=== PATIENT | male | born 1980 | race Caucasian/White ===

== ENCOUNTER 2016-08-09 05:14 | Emergency (ER) | payer OTHER ==
[~2016-08-09] VITALS: Ht 162.6 cm; Wt 88.0 kg
[~2016-08-09 05:14] MED LIST: AMOXICILLIN500 MG PO; DIFLUCAN150 MG OR; LIORESAL IT; LOTRIMIN AF11 EX; RANITIDINE75 M1 PO; TAM75CAP PO; ULTRAM50 M1 PO; [UNRECOGNIZED DRUG - OTHER] IT
[2016-08-09 06:49] LABS: HEMATOCRIT 46.7 % (39.0-50.0); HEMOGLOBIN 15.3 g/dl (14.0-18.0); IMMATURE GRANULOCYTES 0.2 % (0.0-1.0); MEAN CELL VOLUME 89.1 fL CALC (80.0-100.0); MEAN CORPUSCULAR HGB 29.2 pG CALC (26.0-32.0); MEAN CORPUSCULAR HGB CONC 32.8 g/L CALC (32.0-36.0); NEUT# 2.97 thou/uL (1.82-7.42); RED BLOOD COUNT 5.24 mill/uL (4.70-6.10); RED CELL DISTRI WIDTH 13.4 % (11.5-15.5)
[2016-08-09 07:24] LABS: ALBUMIN 4.6 g/dL (3.2-5.0); ALKALINE PHOSPHATASE 95 u/l (38-126); AMYLASE 91 u/l (30-110); ANION GAP 18 (6-22 (CALC)); BILIRUBIN, TOTAL 1.4 mg/dL (0.0-1.4); BUN 12 mg/dL (9-20); BUN/CREATININE RATIO 10 (12-20 (CALC)); CALCIUM 9.4 mg/dL (8.4-10.2); CARBON DIOXIDE 26 mmol/l (22-30); CHLORIDE 106 mmol/l (95-108); CREATININE 1.2 mg/dL (0.7-1.3); GFR > 60 ML/MIN (>=60 (CALC)); GFR FOR AFR.AMER. > 60 ML/MIN (>=60 (CALC)); GLUCOSE 112 mg/dL (75-110); LIPASE 111 u/l (23-300); POTASSIUM 4.2 mmol/l (3.5-5.1); SGOT/AST 38 u/l (17-59); SGPT/ALT 41 u/l (21-72); SODIUM 146 mmol/l (137-146); TOTAL PROTEIN 7.8 g/dL (6.3-8.2)
[2016-08-09] MEDS ORDERED: PANTOPRAZOLE SO40 M1 PO (07:58)
[2016-08-09] MEDS ORDERED: LORTAB 10-325 M1 TAB PO (08:32)
[2016-08-09 08:49] VITALS: BP 112/68
[2016-08-09] MEDS ORDERED: ZOFRAN ODT4 MG PO (11:48)
== END 2016-08-09 09:00 | disposition home or self-care (01) | DRG 392 ==
LOC: ED 05:14
PROVIDERS: Emergency Medicine
DX: R10.32 Left lower quadrant pain (principal); N20.0 Calculus of kidney; G80.9 Cerebral palsy, unspecified; K44.9 Diaphragmatic hernia without obstruction or gangrene; Z96.89 Presence of other specified functional implants

== ENCOUNTER 2017-06-12 08:25 | Emergency (ER) | payer OTHER ==
[~2017-06-12] VITALS: Ht 162.6 cm; Wt 87.0 kg
[~2017-06-12 08:25] MED LIST changes: +LORTAB 10-325 M1 TAB PO; +PANTOPRAZOLE SO40 M1 PO; +ZOFRAN ODT4 MG PO
[2017-06-12 09:21] LABS: HEMATOCRIT 47.2 % (39.0-50.0); HEMOGLOBIN 15.7 g/dl (14.0-18.0); IMMATURE GRANULOCYTES 0.3 % (0.0-1.0); MEAN CELL VOLUME 87.6 fL CALC (80.0-100.0); MEAN CORPUSCULAR HGB 29.1 pG CALC (26.0-32.0); MEAN CORPUSCULAR HGB CONC 33.3 g/L CALC (32.0-36.0); RED BLOOD COUNT 5.39 mill/uL (4.70-6.10); RED CELL DISTRI WIDTH 13.7 % (11.5-15.5); URINE BILIRUBIN - DIPSTICK NEGATIVE (NEGATIVE); URINE BLOOD DIPSTICK LARGE (NEGATIVE); URINE GLUCOSE - DIPSTICK NEGATIVE (NEGATIVE); URINE KETONE NEGATIVE (NEGATIVE); URINE LEUK ESTERASE NEGATIVE (NEGATIVE); URINE NITRITE - DIPSTICK NEGATIVE (Negative); URINE PH 5.5 (4.5-8.0); URINE PROTEIN - DIPSTICK 30 mg/dL (NEG-TRACE); URINE SPECIFIC GRAVITY >=1.030; URINE UROBILINOGEN - DIPSTICK 0.2 E.U./dL (0.2)
[2017-06-12 09:22] LABS: URINE CLARITY SL CLOUDY; URINE COLOR DK. YELLOW
[2017-06-12 09:26] LABS: ALBUMIN 4.5 g/dL (3.2-5.0); ALKALINE PHOSPHATASE 121 u/l (38-126); ANION GAP 20 (6-22 (CALC)); BILIRUBIN, TOTAL 1.1 mg/dL (0.0-1.4); BUN 13 mg/dL (9-20); BUN/CREATININE RATIO 10 (12-20 (CALC)); CARBON DIOXIDE 23 mmol/l (22-30); CHLORIDE 106 mmol/l (95-108); CREATININE 1.3 mg/dL (0.7-1.3); GFR > 60 ML/MIN (>=60 (CALC)); GFR FOR AFR.AMER. > 60 ML/MIN (>=60 (CALC)); LIPASE 146 u/l (23-300); POTASSIUM 4.5 mmol/l (3.5-5.1); SGOT/AST 37 u/l (17-59); SGPT/ALT 52 u/l (21-72); SODIUM 145 mmol/l (137-146); TOTAL PROTEIN 7.9 g/dL (6.3-8.2)
[2017-06-12] MEDS ORDERED: HYDROCO/APAP1 TA9 PO (10:36)
[2017-06-12] MEDS ORDERED: MOTRIN400 MG PO (10:36)
[2017-06-12] MEDS ORDERED: CEPHALEXIN500 M1 PO (10:36)
[2017-06-12] MEDS ORDERED: TAMSULOSIN0.4 MG PO (10:36)
[2017-06-12 10:39] VITALS: BP 152/85
== END 2017-06-12 10:57 | disposition home or self-care (01) | DRG 694 ==
LOC: ED 08:25
PROVIDERS: Family Medicine
DX: N13.2 Hydronephrosis with renal and ureteral calculous obstruction (principal); G80.9 Cerebral palsy, unspecified; K42.9 Umbilical hernia without obstruction or gangrene; R10.9 Unspecified abdominal pain; K44.9 Diaphragmatic hernia without obstruction or gangrene; I25.10 Atherosclerotic heart disease of native coronary artery without angina pectoris; Z98.61 Coronary angioplasty status; R11.0 Nausea

== ENCOUNTER 2019-01-30 12:47 | Emergency (ER) | payer OTHER ==
[~2019-01-30] VITALS: Ht 162.6 cm; Wt 83.0 kg
[~2019-01-30 12:47] MED LIST changes: +CEPHALEXIN500 M1 PO; +HYDROCO/APAP1 TA9 PO; +MOTRIN400 MG PO; +TAMSULOSIN0.4 MG PO
[2019-01-30 13:44] LABS: HEMATOCRIT 49.6 % (39.0-50.0); HEMOGLOBIN 16.6 g/dl (14.0-18.0); IMMATURE GRANULOCYTES 0.9 % (0.0-5.0); MEAN CELL VOLUME 89.2 fL CALC (80.0-100.0); MEAN CORPUSCULAR HGB 29.9 pG CALC (26.0-32.0); MEAN CORPUSCULAR HGB CONC 33.5 g/L CALC (32.0-36.0); NEUT# 5.69 thou/uL (1.82-7.42); RED BLOOD COUNT 5.56 mill/uL (4.70-6.10); RED CELL DISTRI WIDTH 13.1 % (11.5-15.5)
[2019-01-30 14:33] LABS: ALBUMIN 4.4 g/dL (3.2-5.0); ALKALINE PHOSPHATASE 94 u/l (38-126); ANION GAP 17 (6-22 (CALC)); BILIRUBIN, TOTAL 1.9 mg/dL (0.0-1.4); BUN 14 mg/dL (9-20); BUN/CREATININE RATIO 12 (12-20 (CALC)); CARBON DIOXIDE 21 mmol/l (22-30); CHLORIDE 107 mmol/l (95-108); CREATININE 1.2 mg/dL (0.7-1.3); GFR > 60 ML/MIN (>=60 (CALC)); GFR FOR AFR.AMER. > 60 ML/MIN (>=60 (CALC)); POTASSIUM 4.3 mmol/l (3.5-5.1); SGOT/AST 49 u/l (17-59); SODIUM 141 mmol/l (137-146); TOTAL PROTEIN 7.9 g/dL (6.3-8.2)
[2019-01-30] MEDS ORDERED: IMITREX25 MG PO (14:33)
[2019-01-30] MEDS ORDERED: PERCOGESI1 PO (15:10)
[2019-01-30] MEDS ORDERED: ALBUTEROL0.5 % IN (15:47)
[2019-01-30 15:56] VITALS: BP 128/77
== END 2019-01-30 15:56 | disposition home or self-care (01) ==
LOC: ED 12:47
DX: S30.0XXA Contusion of lower back and pelvis, initial encounter (principal); B34.9 Viral infection, unspecified; I25.10 Atherosclerotic heart disease of native coronary artery without angina pectoris; G80.9 Cerebral palsy, unspecified; W18.39XA Other fall on same level, initial encounter; Y92.009 Unspecified place in unspecified non-institutional (private) residence as the place of occurrence of the external cause

== ENCOUNTER 2021-03-16 17:29 | Emergency (ER) | payer OTHER ==
[~2021-03-16] VITALS: Ht 162.6 cm; Wt 97.0 kg
[~2021-03-16 17:29] MED LIST changes: +ALBUTEROL0.5 % IN; +IMITREX25 MG PO; +PERCOGESI1 PO
[2021-03-16 19:01] LABS: HEMATOCRIT 49.1 % (39.0-50.0); HEMOGLOBIN 16.4 g/dl (14.0-18.0); IMMATURE GRANULOCYTES 0.3 % (0.0-5.0); MEAN CELL VOLUME 90.9 fL CALC (80.0-100.0); MEAN CORPUSCULAR HGB 30.4 pG CALC (26.0-32.0); MEAN CORPUSCULAR HGB CONC 33.4 g/dL CAL (32.0-36.0); NEUT# 6.34 thou/uL (1.82-7.42); RED BLOOD COUNT 5.4 mill/uL (4.70-6.10); RED CELL DISTRI WIDTH 13.2 % (11.5-15.5)
[2021-03-16 20:10] LABS: URINE BILIRUBIN - DIPSTICK NEGATIVE (NEGATIVE); URINE BLOOD DIPSTICK SMALL (NEGATIVE); URINE GLUCOSE - DIPSTICK NEGATIVE (NEGATIVE); URINE KETONE NEGATIVE (NEGATIVE); URINE LEUK ESTERASE NEGATIVE (NEGATIVE); URINE PROTEIN - DIPSTICK 30 mg/dL (NEG-TRACE); URINE SPECIFIC GRAVITY >=1.030
[2021-03-16 20:14] LABS: URINE COLOR DK. YELLOW; URINE NITRITE - DIPSTICK NEGATIVE (Negative)
[2021-03-16 20:38] LABS: URINE WBC 0-2 WBC/hpf (0-5)
[2021-03-16 21:45] LABS: ALKALINE PHOSPHATASE 70 u/l (38-126); ANION GAP 10 (6-22 (CALC)); BILIRUBIN, TOTAL 2.2 mg/dL (0.0-1.4); BUN 14 mg/dL (9-20); BUN/CREATININE RATIO 14 (12-20 (CALC)); CARBON DIOXIDE 21 mmol/l (22-30); CHLORIDE 110 mmol/l (95-108); CREATININE 1.1 mg/dL (0.7-1.3); GFR > 60 ML/MIN (>=60 (CALC)); GFR FOR AFR.AMER. > 60 ML/MIN (>=60 (CALC)); POTASSIUM 4.1 mmol/l (3.5-5.1); SGOT/AST 38 u/l (17-59); SODIUM 137 mmol/l (137-146); TOTAL PROTEIN 6.7 g/dL (6.3-8.2)
[2021-03-16 21:46] LABS: ALBUMIN 3.4 g/dL (3.2-5.0)
[2021-03-16] MEDS ORDERED: ZOFRAN4 MG/TAB PO (23:44)
[2021-03-16] MEDS ORDERED: PEPCID20 MG PO (23:44)
[2021-03-17 00:48] VITALS: BP 113/67
== END 2021-03-17 00:55 | disposition home or self-care (01) ==
LOC: ED 17:29
PROVIDERS: Family Medicine
DX: R11.2 Nausea with vomiting, unspecified (principal); R19.7 Diarrhea, unspecified; G80.9 Cerebral palsy, unspecified; I25.10 Atherosclerotic heart disease of native coronary artery without angina pectoris
CPT/HCPCS: Q9967

== ENCOUNTER 2021-10-14 06:54 | Observation (INO) | payer OTHER ==
[2021-10-14] VITALS (26 sets, daily range): BP systolic 92–144; BP diastolic 59–94
[~2021-10-14] VITALS: Ht 162.6 cm; Wt 94.0 kg
[~2021-10-14 06:54] MED LIST changes: +PEPCID20 MG PO; +ZOFRAN4 MG/TAB PO
[2021-10-14] MEDS ORDERED: ALFUZOSIN HCL E10 MG PO (07:38)
[2021-10-14] MEDS ORDERED: PHENAZOPYRID200 MG PO (07:38)
[2021-10-14] MEDS ORDERED: LOPRESSOR25 M1 PO (07:38)
[2021-10-14] MEDS ORDERED: ATORVASTATIN CA10 MG PO (07:39)
[2021-10-14] MEDS ORDERED: OMEPRAZOLE DR40 MG (07:39)
[2021-10-14] MEDS ORDERED: BUSPAR10 M1 PO (07:39)
[2021-10-14] MEDS ORDERED: ATIVAN1 MG PO (07:40)
[2021-10-14 07:44] LABS: HEMATOCRIT 47.9 % (39.0-50.0); IMMATURE GRANULOCYTES 0.2 % (0.0-5.0); MEAN CELL VOLUME 91.9 fL CALC (80.0-100.0); MEAN CORPUSCULAR HGB 30.7 pG CALC (26.0-32.0); MEAN CORPUSCULAR HGB CONC 33.4 g/dL CAL (32.0-36.0); NEUT# 11.98 thou/uL (1.82-7.42); RED BLOOD COUNT 5.21 mill/uL (4.70-6.10); RED CELL DISTRI WIDTH 13.1 % (11.5-15.5)
[2021-10-14 08:01] LABS: ALKALINE PHOSPHATASE 99 u/l (38-126); ANION GAP 13 (6-22 (CALC)); BILIRUBIN, TOTAL 2.5 mg/dL (0.0-1.4); BUN 12 mg/dL (9-20); BUN/CREATININE RATIO 11 (12-20 (CALC)); CARBON DIOXIDE 23 mmol/l (22-30); CHLORIDE 105 mmol/l (95-108); CREATININE 1.1 mg/dL (0.7-1.3); GFR FOR AFR.AMER. > 60 ML/MIN (>=60 (CALC)); GFR OTHER RACES > 60 ML/MIN (>=60 (CALC)); POTASSIUM 4.2 mmol/l (3.5-5.1); SGOT/AST 28 u/l (17-59); SODIUM 136 mmol/l (137-146); TOTAL PROTEIN 7.3 g/dL (6.3-8.2)
[2021-10-14 09:01] LABS: URINE BILIRUBIN - DIPSTICK NEGATIVE (NEGATIVE); URINE BLOOD DIPSTICK LARGE (NEGATIVE); URINE COLOR YELLOW; URINE GLUCOSE - DIPSTICK NEGATIVE (NEGATIVE); URINE KETONE NEGATIVE (NEGATIVE); URINE LEUK ESTERASE TRACE (NEGATIVE); URINE PH 8.5 (4.5-8.0); URINE PROTEIN - DIPSTICK NEGATIVE (NEG-TRACE); URINE SPECIFIC GRAVITY 1.015
[2021-10-14 09:06] LABS: URINE NITRITE - DIPSTICK POSITIVE (Negative)
[2021-10-14 09:18] LABS: URINE BACTERIA FEW hpf; URINE RBC 25-50 RBC/hpf (0-5)
[2021-10-14 09:19] LABS: URINE AMORPH SEDIMENT FEW hpf (NONE-FER)
[2021-10-15] VITALS: BP 92/59
[2021-10-15 03:37] VITALS: BP 90/54
[2021-10-15 04:00] VITALS: BP 90/54
[2021-10-15 06:18] LABS: IMMATURE GRANULOCYTES 0.3 % (0.0-5.0); MEAN CELL VOLUME 94.6 fL CALC (80.0-100.0); MEAN CORPUSCULAR HGB 31.1 pG CALC (26.0-32.0); MEAN CORPUSCULAR HGB CONC 32.8 g/dL CAL (32.0-36.0); NEUT# 8.64 thou/uL (1.82-7.42); RED BLOOD COUNT 4.25 mill/uL (4.70-6.10); RED CELL DISTRI WIDTH 13.1 % (11.5-15.5)
[2021-10-15 06:19] LABS: HEMATOCRIT 40.2 % (39.0-50.0); HEMOGLOBIN 13.2 g/dl (14.0-18.0)
[2021-10-15 06:37] LABS: ANION GAP 12 (6-22 (CALC)); BUN 10 mg/dL (9-20); BUN/CREATININE RATIO 9 (12-20 (CALC)); CARBON DIOXIDE 22 mmol/l (22-30); CHLORIDE 108 mmol/l (95-108); CREATININE 1.1 mg/dL (0.7-1.3); GFR FOR AFR.AMER. > 60 ML/MIN (>=60 (CALC)); GFR OTHER RACES > 60 ML/MIN (>=60 (CALC)); MAGNESIUM 1.8 mg/dL (1.6-2.3); POTASSIUM 4.3 mmol/l (3.5-5.1); SODIUM 137 mmol/l (137-146)
[2021-10-15 06:43] VITALS: BP 97/60
[2021-10-15 08:04] VITALS: BP 97/60
[2021-10-15 10:37] VITALS: BP 111/79
[2021-10-15] MEDS ORDERED: CIPROFLOXACN500 MG PO (11:10)
== END 2021-10-15 11:55 | disposition home or self-care (01) ==
LOC: ED 06:54 → ED-I 10:35 → ED 11:17 → MS2 11:18
PROVIDERS: Family Medicine; Nurse Practitioner; ADMIT Internal Medicine; ATTEND Internal Medicine
DX: N39.0 Urinary tract infection, site not specified (principal); G80.9 Cerebral palsy, unspecified; I25.10 Atherosclerotic heart disease of native coronary artery without angina pectoris; K44.9 Diaphragmatic hernia without obstruction or gangrene; F41.9 Anxiety disorder, unspecified; Z93.59 Other cystostomy status; Z96.89 Presence of other specified functional implants; Z87.448 Personal history of other diseases of urinary system; Z20.822 Contact with and (suspected) exposure to COVID-19
CPT/HCPCS: G0378; J1650; Q9967

== ENCOUNTER 2021-10-21 19:49 | Emergency (ER) | payer OTHER ==
[~2021-10-21] VITALS: Ht 162.6 cm; Wt 97.0 kg
[~2021-10-21 19:49] MED LIST changes: +ALFUZOSIN HCL E10 MG PO; +ATIVAN1 MG PO; +ATORVASTATIN CA10 MG PO; +BUSPAR10 M1 PO; +CIPROFLOXACN500 MG PO; +LOPRESSOR25 M1 PO; +OMEPRAZOLE DR40 MG; +PHENAZOPYRID200 MG PO
[2021-10-21 21:55] LABS: URINE BILIRUBIN - DIPSTICK NEGATIVE (NEGATIVE); URINE BLOOD DIPSTICK LARGE (NEGATIVE); URINE COLOR BROWN; URINE GLUCOSE - DIPSTICK 250 mg/dL (NEGATIVE); URINE KETONE TRACE mg/dL (NEGATIVE); URINE LEUK ESTERASE TRACE (NEGATIVE); URINE PROTEIN - DIPSTICK >=300 mg/dL (NEG-TRACE); URINE SPECIFIC GRAVITY >=1.030; URINE UROBILINOGEN - DIPSTICK >=8.0 E.U./dL (0.2)
[2021-10-21 22:01] LABS: URINE NITRITE - DIPSTICK POSITIVE (Negative)
[2021-10-21 22:06] LABS: URINE RBC >100 RBC/hpf (0-5)
[2021-10-21 22:07] LABS: URINE BACTERIA FEW hpf; URINE MUCUS MODERATE hpf (NONE-FEW)
[2021-10-21 22:08] LABS: URINE CALCIUM OXALATE CRYSTALS FEW lpf
[2021-10-21] MEDS ORDERED: KEFLEX500 MG PO (22:16)
[2021-10-21 23:40] VITALS: BP 137/76
[2021-10-21 23:48] LABS: MEAN CORPUSCULAR HGB 30.6 pG CALC (26.0-32.0); MEAN CORPUSCULAR HGB CONC 33.3 g/dL CAL (32.0-36.0); NEUT# 3.21 thou/uL (1.82-7.42); RED BLOOD COUNT 5.13 mill/uL (4.70-6.10); RED CELL DISTRI WIDTH 12.9 % (11.5-15.5)
[2021-10-21 23:49] LABS: HEMATOCRIT 47.2 % (39.0-50.0); HEMOGLOBIN 15.7 g/dl (14.0-18.0)
[2021-10-22 00:07] LABS: ALBUMIN 4.1 g/dL (3.2-5.0); ALKALINE PHOSPHATASE 103 u/l (38-126); ANION GAP 14 (6-22 (CALC)); BUN 12 mg/dL (9-20); BUN/CREATININE RATIO 12 (12-20 (CALC)); CARBON DIOXIDE 23 mmol/l (22-30); CHLORIDE 107 mmol/l (95-108); GFR FOR AFR.AMER. > 60 ML/MIN (>=60 (CALC)); GFR OTHER RACES > 60 ML/MIN (>=60 (CALC)); POTASSIUM 3.6 mmol/l (3.5-5.1); SGOT/AST 41 u/l (17-59); SODIUM 140 mmol/l (137-146); TOTAL PROTEIN 7.4 g/dL (6.3-8.2)
[2021-10-22 00:09] LABS: BILIRUBIN, TOTAL 0.7 mg/dL (0.0-1.4)
== END 2021-10-21 23:40 | disposition home or self-care (01) ==
LOC: ED 19:49
PROVIDERS: Emergency Medicine
DX: N39.0 Urinary tract infection, site not specified (principal); G80.9 Cerebral palsy, unspecified; I25.10 Atherosclerotic heart disease of native coronary artery without angina pectoris; Z93.50 Unspecified cystostomy status

== ENCOUNTER 2021-11-27 11:53 | Emergency (ER) | payer OTHER ==
[~2021-11-27] VITALS: Ht 162.6 cm; Wt 94.0 kg
[2021-11-27] VITALS (10 sets, daily range): BP systolic 111–129; BP diastolic 70–93
[~2021-11-27 11:53] MED LIST changes: +KEFLEX500 MG PO
[2021-11-27 13:25] LABS: URINE BILIRUBIN - DIPSTICK NEGATIVE (NEGATIVE); URINE BLOOD DIPSTICK LARGE (NEGATIVE); URINE COLOR YELLOW; URINE GLUCOSE - DIPSTICK NEGATIVE (NEGATIVE); URINE KETONE NEGATIVE (NEGATIVE); URINE PH 6.5 (4.5-8.0); URINE PROTEIN - DIPSTICK TRACE mg/dL (NEG-TRACE); URINE SPECIFIC GRAVITY 1.015; URINE UROBILINOGEN - DIPSTICK 0.2 E.U./dL (0.2)
[2021-11-27 13:26] LABS: URINE LEUK ESTERASE LARGE (NEGATIVE); URINE NITRITE - DIPSTICK POSITIVE (Negative)
[2021-11-27 13:44] LABS: URINE BACTERIA MANY hpf; URINE WBC 20-50 WBC/hpf (0-5)
== END 2021-11-27 14:33 | disposition home or self-care (01) ==
LOC: ED 11:53
PROVIDERS: Nurse Practitioner
DX: T83.090A Other mechanical complication of cystostomy catheter, initial encounter (principal); G80.9 Cerebral palsy, unspecified; I25.10 Atherosclerotic heart disease of native coronary artery without angina pectoris; Y83.3 Surgical operation with formation of external stoma as the cause of abnormal reaction of the patient, or of later complication, without mention of misadventure at the time of the procedure

== ENCOUNTER 2021-12-09 16:48 | Emergency (ER) | payer OTHER ==
[~2021-12-09] VITALS: Ht 162.6 cm; Wt 92.9 kg
[2021-12-09 17:02] VITALS: BP 132/105
[2021-12-09] MEDS ORDERED: LOTRISONE EX (17:28)
[2021-12-09 17:30] VITALS: BP 108/79
[2021-12-09 17:37] VITALS: BP 108/79
== END 2021-12-09 17:49 | disposition home or self-care (01) ==
LOC: ED 16:48
DX: T83.090A Other mechanical complication of cystostomy catheter, initial encounter (principal); G80.8 Other cerebral palsy; I25.10 Atherosclerotic heart disease of native coronary artery without angina pectoris; Y83.3 Surgical operation with formation of external stoma as the cause of abnormal reaction of the patient, or of later complication, without mention of misadventure at the time of the procedure

== ENCOUNTER 2021-12-13 13:56 | Emergency (ER) | payer OTHER ==
[~2021-12-13] VITALS: Ht 162.6 cm; Wt 90.7 kg
[~2021-12-13 13:56] MED LIST changes: +LOTRISONE EX
[2021-12-13 14:05] VITALS: BP 128/93
[2021-12-13 14:30] VITALS: BP 140/94
[2021-12-13] MEDS ORDERED: AMPICILLIN500 MG PO (14:35)
[2021-12-13 15:01] VITALS: BP 122/93
[2021-12-13 15:31] VITALS: BP 107/67
[2021-12-13 16:02] VITALS: BP 107/67
== END 2021-12-13 16:19 | disposition home or self-care (01) ==
LOC: ED 13:56
DX: T83.090A Other mechanical complication of cystostomy catheter, initial encounter (principal); R82.71 Bacteriuria; G80.9 Cerebral palsy, unspecified; K44.9 Diaphragmatic hernia without obstruction or gangrene; I25.10 Atherosclerotic heart disease of native coronary artery without angina pectoris; Y83.3 Surgical operation with formation of external stoma as the cause of abnormal reaction of the patient, or of later complication, without mention of misadventure at the time of the procedure

== ENCOUNTER 2022-01-19 07:48 | Emergency (ER) | payer OTHER ==
[~2022-01-19] VITALS: Ht 162.6 cm; Wt 92.9 kg
[~2022-01-19 07:48] MED LIST changes: +AMPICILLIN500 MG PO
[2022-01-19 08:02] VITALS: BP 124/73
[2022-01-19 08:20] LABS: HEMATOCRIT 47.6 % (39.0-50.0); HEMOGLOBIN 16.2 g/dl (14.0-18.0); IMMATURE GRANULOCYTES 0.2 % (0.0-5.0); MEAN CELL VOLUME 87.5 fL CALC (80.0-100.0); MEAN CORPUSCULAR HGB 29.8 pG CALC (26.0-32.0); NEUT# 9.45 thou/uL (1.82-7.42); RED BLOOD COUNT 5.44 mill/uL (4.70-6.10); RED CELL DISTRI WIDTH 12.5 % (11.5-15.5)
[2022-01-19 08:30] VITALS: BP 111/82
[2022-01-19 08:58] LABS: ALBUMIN 4.5 g/dL (3.2-5.0); ALKALINE PHOSPHATASE 109 u/l (38-126); ANION GAP 15 (6-22 (CALC)); BUN 13 mg/dL (9-20); BUN/CREATININE RATIO 12 (12-20 (CALC)); CARBON DIOXIDE 20 mmol/l (22-30); CHLORIDE 106 mmol/l (95-108); CREATININE 1.1 mg/dL (0.7-1.3); GFR FOR AFR.AMER. > 60 ML/MIN (>=60 (CALC)); GFR OTHER RACES > 60 ML/MIN (>=60 (CALC)); POTASSIUM 4.2 mmol/l (3.5-5.1); SGOT/AST 41 u/l (17-59); SODIUM 136 mmol/l (137-146); TOTAL PROTEIN 8.2 g/dL (6.3-8.2)
[2022-01-19 08:59] LABS: BILIRUBIN, TOTAL 1.9 mg/dL (0.0-1.4)
[2022-01-19 09:01] VITALS: BP 111/76
[2022-01-19 09:30] VITALS: BP 132/95
[2022-01-19 09:56] LABS: URINE BILIRUBIN - DIPSTICK NEGATIVE (NEGATIVE); URINE BLOOD DIPSTICK LARGE (NEGATIVE); URINE COLOR YELLOW; URINE GLUCOSE - DIPSTICK NEGATIVE (NEGATIVE); URINE KETONE NEGATIVE (NEGATIVE); URINE PH 8.5 (4.5-8.0); URINE PROTEIN - DIPSTICK 30 mg/dL (NEG-TRACE)
[2022-01-19 10:06] LABS: URINE LEUK ESTERASE MODERATE (NEGATIVE); URINE NITRITE - DIPSTICK NEGATIVE (Negative)
[2022-01-19 10:08] LABS: URINE BACTERIA MANY hpf
[2022-01-19] MEDS ORDERED: OMNI-PAC300 MG PO (12:37)
[2022-01-19 12:44] VITALS: BP 132/95
== END 2022-01-19 13:10 | disposition home or self-care (01) ==
LOC: ED 07:48
PROVIDERS: Internal Medicine
DX: T83.090A Other mechanical complication of cystostomy catheter, initial encounter (principal); N39.0 Urinary tract infection, site not specified; G80.9 Cerebral palsy, unspecified; I25.10 Atherosclerotic heart disease of native coronary artery without angina pectoris; B96.89 Other specified bacterial agents as the cause of diseases classified elsewhere; Y83.3 Surgical operation with formation of external stoma as the cause of abnormal reaction of the patient, or of later complication, without mention of misadventure at the time of the procedure; Z87.440 Personal history of urinary (tract) infections

== ENCOUNTER 2022-01-25 20:02 | Emergency (ER) | payer OTHER ==
[~2022-01-25] VITALS: Ht 162.6 cm; Wt 90.9 kg
[~2022-01-25 20:02] MED LIST changes: +OMNI-PAC300 MG PO
[2022-01-25 20:31] VITALS: BP 181/143
[2022-01-25 20:46] VITALS: BP 137/99
[2022-01-25 21:22] LABS: HEMATOCRIT 44.4 % (39.0-50.0); HEMOGLOBIN 15.1 g/dl (14.0-18.0); IMMATURE GRANULOCYTES 0.2 % (0.0-5.0); MEAN CELL VOLUME 88.1 fL CALC (80.0-100.0); NEUT# 6.82 thou/uL (1.82-7.42); RED BLOOD COUNT 5.04 mill/uL (4.70-6.10); RED CELL DISTRI WIDTH 12.5 % (11.5-15.5)
[2022-01-25 21:40] LABS: ALBUMIN 4.2 g/dL (3.2-5.0); ALKALINE PHOSPHATASE 98 u/l (38-126); ANION GAP 12 (6-22 (CALC)); BUN 12 mg/dL (9-20); BUN/CREATININE RATIO 8 (12-20 (CALC)); CARBON DIOXIDE 22 mmol/l (22-30); CHLORIDE 108 mmol/l (95-108); CREATININE 1.5 mg/dL (0.7-1.3); GFR FOR AFR.AMER. > 60 ML/MIN (>=60 (CALC)); GFR OTHER RACES 52 ML/MIN (>=60 (CALC)); SGOT/AST 41 u/l (17-59); SODIUM 138 mmol/l (137-146); TOTAL PROTEIN 8.1 g/dL (6.3-8.2)
[2022-01-26 02:44] VITALS: BP 137/99
== END 2022-01-26 02:55 | disposition home or self-care (01) ==
LOC: ED 20:02
PROVIDERS: Emergency Medicine
DX: T83.090A Other mechanical complication of cystostomy catheter, initial encounter (principal); N13.30 Unspecified hydronephrosis; G80.9 Cerebral palsy, unspecified; I25.10 Atherosclerotic heart disease of native coronary artery without angina pectoris; Y83.3 Surgical operation with formation of external stoma as the cause of abnormal reaction of the patient, or of later complication, without mention of misadventure at the time of the procedure; Z87.442 Personal history of urinary calculi

== ENCOUNTER 2022-11-07 13:24 | Emergency (ER) | payer OTHER ==
[~2022-11-07] VITALS: Ht 162.6 cm; Wt 81.6 kg
[2022-11-07 13:34] VITALS: BP 128/80
[2022-11-07 13:45] VITALS: BP 129/79
[2022-11-07 14:01] VITALS: BP 110/70
[2022-11-07 15:09] VITALS: BP 120/68
== END 2022-11-07 15:14 | disposition home or self-care (01) ==
LOC: ED 13:24
DX: T83.090A Other mechanical complication of cystostomy catheter, initial encounter (principal); G80.9 Cerebral palsy, unspecified; I25.10 Atherosclerotic heart disease of native coronary artery without angina pectoris; Y83.3 Surgical operation with formation of external stoma as the cause of abnormal reaction of the patient, or of later complication, without mention of misadventure at the time of the procedure

== ENCOUNTER 2023-10-04 16:47 | Inpatient (IN) | payer OTHER ==
[2023-10-04] VITALS (14 sets, daily range): BP systolic 96–119; BP diastolic 65–80
[~2023-10-04] VITALS: Ht 162.6 cm; Wt 66.2 kg
[~2023-10-04 16:47] MED LIST changes: +CITRATE OF MEGNESIA PO; +MIRALAX17 GM PO
--- NOTE | 2023-10-04 16:47 | NUR ---
PT TO ER ROOM 9 VIA EMS
[2023-10-04] MEDS ORDERED: SODIUM CHLORIDE 0.9% 1,000 ML IV ONE (17:20)
[2023-10-04] MEDS ORDERED: ACETAMINOPHEN 500 MG TAB PO ONE (17:20)
[2023-10-04] MEDS ORDERED: PIPERACILLIN Sodium-Tazobactam 3.375 GM in SODIUM CHLORIDE 0.9% 100 ML IV ONE (17:20)
--- NOTE | 2023-10-04 17:22 | NUR ---
PT RESTING IN BED. VSS. AT BEDSIDE. PT HAS A NEWLY PLACED PORT AND WANTS THIS NURSE TO ACCESS IT. THISNURSE EDUCATED PT THAT BECAUSE PORT WAS PLACED LESS THAN A WEEK AGO, SITE IS NOT HEALED, AND DERMABOND IS PRESENT, THIS NURSE CANNOT ACCESS HIS PORT. PT AND FAMILY STATES UNDERSTANDING. IV TO BE INITIATED.
[2023-10-04 18:24] LABS: ALBUMIN 3.2 g/dL (3.2-5.0); CREATININE 0.9 mg/dL (0.7-1.3); POTASSIUM 3.4 mmol/l (3.5-5.1); TOTAL PROTEIN 7.7 g/dL (6.3-8.2)
[2023-10-04 18:25] LABS: BASO% 1.2 % (0-3); EOS% 1.2 % (0-8); HEMATOCRIT 27.7 % (39.0-50.0); HEMOGLOBIN 8.9 g/dl (14.0-18.0); IMMATURE GRANULOCYTES 1.2 % (0.0-5.0); LYMPH% 40.2 % (15-41); MEAN CELL VOLUME 78.5 fL CALC (80.0-100.0); MEAN CORPUSCULAR HGB 25.2 pG CALC (26.0-32.0); MEAN CORPUSCULAR HGB CONC 32.1 g/dL CAL (32.0-36.0); MONO% 34.1 % (2-13); NEUT# 0.18 thou/uL (1.82-7.42); NEUT% 22.1 % (42-76); RED BLOOD COUNT 3.53 mill/uL (4.70-6.10); RED CELL DISTRI WIDTH 15.5 % (11.5-15.5)
--- NOTE | 2023-10-04 18:25 | NUR ---
URINE COLEECTED FROM PATINTS SUPRAPUBIC CATH AND SENT DOWN TO LAB. PT REPORTS HE HAS A LESION ON HIS PENIS THAT IS CAUSIG HIM PAIN.
[2023-10-04 18:34] LABS: BILIRUBIN, TOTAL 2.9 mg/dL (0.2-1.3)
[2023-10-04 18:43] LABS: URINE BLOOD DIPSTICK Large (NEGATIVE); URINE COLOR Brown; URINE GLUCOSE - DIPSTICK Negative (NEGATIVE); URINE KETONE Trace mg/dL (NEGATIVE); URINE LEUK ESTERASE Large (NEGATIVE); URINE NITRITE - DIPSTICK Positive (Negative); URINE PROTEIN - DIPSTICK >=300 mg/dL (NEG-TRACE)
[2023-10-04 18:54] LABS: URINE BACTERIA FEW hpf; URINE RBC >100 RBC/hpf (0-5)
[2023-10-04] MEDS ORDERED: VANCOMYCIN HCL 1 GM in SODIUM CHLORIDE 0.9% 250 ML IV ONE (18:55)
--- NOTE | 2023-10-04 20:48 | NUR ---
Patient is in room resting with spouse at bedside. patient has a surgical incision to rt upper chest wall due to recent port insertion. Patient's lip are dry. Leg bag catheter has 100ml of tea colored urine. 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 Spouse states that he wants to be a DNR. ED MD aware.
--- NOTE | 2023-10-04 22:24 | NUR ---
INCONT OF URINE IT IS LEAKING AROUND THE S/P CATH. LINENS CHANGED/PT CLEANSED.
[2023-10-04] MEDS ORDERED: SODIUM CHLORIDE 500 ML BTL IR ONE (22:29)
--- NOTE | 2023-10-04 22:41 | NUR ---
PER DR MONTAGUE...CHECK INFLATION OF BALLOON AND FLUSH CATH WITH N.S. CHECKED INFLATION OF BALLOON AND IT HAD 10 CC OF NS. INFLATED PER CATH WITH 30CC OF NS. FLUSHED CATH WITH 30 CC OF NS...PT STARTED HAVING BLADDER SPASMS. NOTIFIED PT HAS NOT HAD HIS MEDICATIONS...ANTISPASMOTICS. PT WILL BE GIVEN SOME ATIVAN.
[2023-10-04] MEDS ORDERED: LORazepam 2 MG/ML IV SCH (22:45)
[2023-10-05] VITALS (12 sets, daily range): BP systolic 90–125; BP diastolic 55–72
--- NOTE | 2023-10-05 00:35 | NUR ---
REPORT CALLED TO Cecile MORA RN
--- NOTE | 2023-10-05 00:43 | NUR ---
PT TRANSPORTED TO [place] VIA STRETCHER IN STABLE CONDITION
--- NOTE | 2023-10-05 01:11 | NUR ---
paitent vitals temp-98.0 resp-19 bp- 125/72 pulse-107 02-95
--- NOTE | 2023-10-05 01:30 | NUR ---
RECEIVED FROM ER ALERT ORIENTED X3. RESP EVEN AND UNLABORED. DENIES PAIN CURRENTLY. SUPERPUBIC CATH DRAINING TO LEG BAG. STATES CATH IS LEAKING AROUND INSERTION SITE. NO WETNESS OBSERVED CURRENTLY. URINE DARK WITH SEDIMENT. PATIENT IS BED/CHAIR BOUND AT HOME. CURRENTLY ON REVERSE ISOLATION DUE TO LOW WBC'S. NEWLY DIAGNOSED BLADDER CANCER. CURRENTLY ON CHEMO AT [facility]. STAYS WITH PATIENT AT ALL TIMES. NEEDS TOTAL ASSISTANCE WITH ALL ADLS. CALL LIGHT IN REACH.
[2023-10-05] MEDS ORDERED: HYDROMORPHONE HC4 MG PO (01:57)
[2023-10-05] MEDS ORDERED: COMPAZINE10 MG PO (01:57)
[2023-10-05] MEDS ORDERED: OXYBUTYNIN CHLO15 MG PO (01:58)
[2023-10-05] MEDS ORDERED: ZOFRAN4 MG/TAB PO (01:58)
[2023-10-05] MEDS ORDERED: LOPERAMIDE HCL2 M1 PO ×2 (01:58→02:06)
[2023-10-05] MEDS ORDERED: ALPRAZOLAM0.25 MG PO (01:59)
[2023-10-05] MEDS ORDERED: FENTANYL25 MCG/HR TD (01:59)
[2023-10-05] MEDS ORDERED: GABAPENTIN300 M2 (01:59)
[2023-10-05] MEDS ORDERED: NARCAN4 MG/0.1 M (02:00)
[2023-10-05] MEDS ORDERED: CEPHALEXIN500 MG PO (02:00)
[2023-10-05] MEDS ORDERED: GABAPENTIN300 M2 PO (02:06)
[2023-10-05] MEDS ORDERED: MIRALAX17 GM PO (02:06)
[2023-10-05] MEDS ORDERED: SODIUM CHLORIDE 0.9% 1,000 ML IV PRN (07:55)
[2023-10-05] MEDS ORDERED: CEFEPIME HYDROCHLORIDE 2 GM in SODIUM CHLORIDE 0.9% 100 ML IV SCH (08:00)
[2023-10-05] MEDS ORDERED: ONDANSETRON HCl 4 MG/2 ML SDV IV PRN (08:00)
--- NOTE | 2023-10-05 08:00 | NUR ---
PT IN BED WITH HOB UP, PT IS DROWSY BUT OREINTED X 3; SPEECH IS GARBELED. PT AT BEDSISDE ASSISTING WITH CARE. PT IV SITE TO RAC CLEAN AND INTACT, SL. PT HAS MEDIPORT TO RIGHT CHEST, UNBALE TO USE AT THIS TIME; SITE IS CLEAN AND DRY. SUPRAPUBIC CATH INTACT WITH LESS THAN 50 ML OF DARK, YELLOW URINE IN BACG; PT STATES HE HAS PRESSURE AT CATH SITE, PROVIDER MADE AWARE. PT HAS CALL LIGHT WITHIN REACH AND SAFETY MEASURES IN PLACE AT THIS TIME.
[2023-10-05 08:31] LABS: BASO% 1.1 % (0-3); EOS% 5.6 % (0-8); HEMATOCRIT 24.5 % (39.0-50.0); HEMOGLOBIN 7.8 g/dl (14.0-18.0); LYMPH% 41.1 % (15-41); MEAN CORPUSCULAR HGB 25.2 pG CALC (26.0-32.0); MEAN CORPUSCULAR HGB CONC 31.8 g/dL CAL (32.0-36.0); MONO% 31.1 % (2-13); NEUT# 0.19 thou/uL (1.82-7.42); NEUT% 21.1 % (42-76); RED BLOOD COUNT 3.1 mill/uL (4.70-6.10); RED CELL DISTRI WIDTH 15.6 % (11.5-15.5)
[2023-10-05 08:57] LABS: ALBUMIN 2.6 g/dL (3.2-5.0); BILIRUBIN, TOTAL 2.5 mg/dL (0.2-1.3); CREATININE 0.8 mg/dL (0.7-1.3); MAGNESIUM 1.8 mg/dL (1.6-2.3); POTASSIUM 3.5 mmol/l (3.5-5.1)
[2023-10-05] MEDS ORDERED: PANTOPRAZOLE SODIUM Sesquihydr 40 MG/TAB PO SCH (09:00)
[2023-10-05] MEDS ORDERED: GABAPENTIN 300 MG/CAP PO SCH (09:00)
[2023-10-05] MEDS ORDERED: TBO-FILGRASTIM 300 MCG/0.5 ML SYR SC SCH (09:00)
--- NOTE | 2023-10-05 09:45 | NUR ---
BLADDER SCAN DONE AND 48 ML NOTED ON 3 SCANS, AWARE. ORDERED ENTERED FOR FLUIDS AND ADMINISTERED ORDERED. PT HAS CALL LIGHT WITHIN REACH AND SAFETY MEASURES IN PLACE AT THIS TIME.
[2023-10-05] MEDS ORDERED: OXYBUTYNIN 5 MG/TAB PO SCH (10:00)
--- NOTE | 2023-10-05 12:00 | NUR ---
PT IN BED RESTING, EYES OPENED TO VOICE. 10 CC OF FLUID REMOVED FROM SUPRAPUBIC CATH BALLOON DIRECTED BY KYLE; WILL FOLLOW UP WITH PT TO MAKE SURE PRESSURE IN LOWER ABD IS IMPROVING. PT HAS CALL LIGHT WITHIN REACH AND SAFETY MEASURES IN PLACE.
[2023-10-05] MEDS ORDERED: ALPRAZolam 0.25 MG PO SCH (13:30)
--- NOTE | 2023-10-05 16:00 | NUR ---
PT IN BED WITH HOB UP. PT STATES HE IS NOT HAVING PRESSURE FROM THE SUPRAPUBIC CATHETER AT THIS TIME. 200 ML OF TEA COLORED URINE NOTES IN CATHETER BAG. PT HAS CALL LIGHT WITHIN REACH AND SAFETY MEASURES IN PLACE AT THIS TIME.
--- NOTE | 2023-10-05 20:00 | NUR ---
RECEIVED REPORT FROM NURSE CESARIO, PATIENT RESTING IN BED, PATIENT IN ROOM, KOJO CEREBRAL PALSY, BED BOUND, ADOLFONET IV ON RAC G 20 NS @ 125CC/HR INFUSING WELL, KOJO SPEECH GARBLE, PATINET HAS SUPRAPUBIC DRAINING TEA COLORED URINE, HELP REPOSITION BUT REFUSED TO TURN, KOJO HAS FENTANYL PATCH ON RT ABDOMEN WAS CHANGED 4 DAYS AGO, ASKING TO RESTART, MD AWARE.
[2023-10-05] MEDS ORDERED: fentaNYL 25 MCG/PATCH TD SCH (21:20)
--- NOTE | 2023-10-06 00:46 | NUR ---
PATIENT RESTING IN BED, EYES CLOSED, NOT IN DISTRTESS, IN ROOM CALL LIIGHT IN REACHED.
--- NOTE | 2023-10-06 04:49 | NUR ---
PATIENT RESTING IN BED, NOT IN DSITRESS, IN ROOM, CALL LIGHT IN REACHED.
[2023-10-06 04:57] VITALS: BP 102/61
[2023-10-06 05:29] LABS: BASO% 0.4 % (0-3); EOS% 2.2 % (0-8); HEMATOCRIT 23.1 % (39.0-50.0); HEMOGLOBIN 7.3 g/dl (14.0-18.0); IMMATURE GRANULOCYTES 1.1 % (0.0-5.0); LYMPH% 29.9 % (15-41); MEAN CELL VOLUME 80.2 fL CALC (80.0-100.0); MEAN CORPUSCULAR HGB 25.3 pG CALC (26.0-32.0); MEAN CORPUSCULAR HGB CONC 31.6 g/dL CAL (32.0-36.0); MONO% 14.4 % (2-13); NEUT# 1.45 thou/uL (1.82-7.42); RED BLOOD COUNT 2.88 mill/uL (4.70-6.10); RED CELL DISTRI WIDTH 15.7 % (11.5-15.5)
[2023-10-06 05:43] LABS: ALBUMIN 2.4 g/dL (3.2-5.0); BILIRUBIN, TOTAL 1.8 mg/dL (0.2-1.3); CREATININE 0.8 mg/dL (0.7-1.3); MAGNESIUM 1.6 mg/dL (1.6-2.3); TOTAL PROTEIN 5.5 g/dL (6.3-8.2)
--- NOTE | 2023-10-06 06:00 | NUR ---
SUPAPUBIC CATH LEAKING, PATIENT LEAKING FROM THE SUPAPUBIC SITE, LARGE INCONTINENCE, FLUSHED CATHETER JUST LEAKS ON THE SITE, BLADDER SCANNED ONLY GOT 10CC, NEW SUPRAPUBIC CATH PLACED. SECOND WORKER MADE AWARE THAT HE IS C/O PAIN BACK, AND BLADDER MD ORDER [facility] SENT FAX ORDER TO PHARMACY.
[2023-10-06] MEDS ORDERED: HYDROcodone/Acetaminophen 1 COMBO TAB PO PRN (07:20)
[2023-10-06 07:22] VITALS: BP 106/65
[2023-10-06] MEDS ORDERED: POTASSIUM CHLORIDE 20 MEQ/TAB PO SCH (09:00)
--- NOTE | 2023-10-06 10:29 | NUR ---
Pt is A&Ox4 able to make need known. spuse is at the bedside. pt state that he was he pain. meds was given per mar order.pt is q2turn educated the pt on plan of care. call light and personl item within reach. plan of care is ongoing.
[2023-10-06] MEDS ORDERED: METHOCARBAMOL 500 MG/TAB PO PRN (11:40)
--- NOTE | 2023-10-06 14:41 | NUR ---
EDUCATED PT ON D/C PAPERWORK.
--- NOTE | 2023-10-06 14:44 | NUR ---
PT IS RESTING WITH EYES CLOSE. PT IS Q2TURN. SPOUSE IS AT BEDSIDE. NOTIFY [employer] THAT GRANIX WAS UNAVAILABLE PER PHARMACY.
[2023-10-06 15:41] VITALS: BP 106/64
--- NOTE | 2023-10-06 18:05 | NUR ---
PT IV INFILTRATE AND HE IS REFUSING TO GET ANOTHER IV. NOTIFY .
--- NOTE | 2023-10-06 19:00 | NUR ---
NURSE TO NURSE REPORT RECEIVED AT BEDSIDE. PT HAS NO IV. PT REFUSED IV TO BE REPLACED PRESS WRITER AT BEDSIDE. SUPERISOR TRIED TO EDUCATED PT AND FAMILY OF THE IMPORTANCE OF HAVING AN IV STILL REFUSING. PER DAY NURSE AWARE PT REFUSED EARLIER TOO.
[2023-10-06 19:19] VITALS: BP 121/75
--- NOTE | 2023-10-06 20:32 | NUR ---
NURSE INFORM ONCALL PROVIDER OF PT REFUSING IV AND THAT [employer] ARCHITECT IS AWARE.
--- NOTE | 2023-10-07 | NUR ---
PT RESTING NURSE PROVIDED PT WITH PAIN MEDICATION. SPOUSE AT BEDSIDE. CALL LIGHT WITHIN REACH. PLAN OF CARE ONGOING.
--- NOTE | 2023-10-07 04:00 | NUR ---
PT RESTING NO DISTRESS NOTED ON EXAM. SPOUSE AT BEDSIDE. CALL LIGHT WITHIN REACH. PLAN OF CARE ONGOING.
[2023-10-07 04:28] VITALS: BP 105/54
[2023-10-07 04:42] VITALS: BP 105/54
[2023-10-07 05:20] LABS: ALBUMIN 2.4 g/dL (3.2-5.0); BILIRUBIN, TOTAL 1.2 mg/dL (0.2-1.3); CREATININE 0.9 mg/dL (0.7-1.3); MAGNESIUM 1.5 mg/dL (1.6-2.3); POTASSIUM 3.3 mmol/l (3.5-5.1); TOTAL PROTEIN 5.5 g/dL (6.3-8.2)
[2023-10-07 05:31] LABS: BASO% 0.2 % (0-3); EOS% 1.4 % (0-8); HEMATOCRIT 25.4 % (39.0-50.0); HEMOGLOBIN 7.8 g/dl (14.0-18.0); IMMATURE GRANULOCYTES 0.4 % (0.0-5.0); LYMPH% 21.7 % (15-41); MEAN CELL VOLUME 81.9 fL CALC (80.0-100.0); MEAN CORPUSCULAR HGB 25.2 pG CALC (26.0-32.0); MEAN CORPUSCULAR HGB CONC 30.7 g/dL CAL (32.0-36.0); MONO% 7.6 % (2-13); NEUT# 3.55 thou/uL (1.82-7.42); NEUT% 68.7 % (42-76); RED BLOOD COUNT 3.1 mill/uL (4.70-6.10)
[2023-10-07 07:00] VITALS: BP 94/62
[2023-10-07 07:16] VITALS: BP 94/62
[2023-10-07] MEDS ORDERED: POTASSIUM CHLORIDE 20 MEQ/TAB PO SCH (08:30)
[2023-10-07] MEDS ORDERED: MAGNESIUM OXIDE 400 MG/TAB PO SCH (09:00)
[2023-10-07] MEDS ORDERED: MAGNESIUM SULFATE HEPTAHYDRATE 50 ML IV SCH (09:00)
--- NOTE | 2023-10-07 11:39 | NUR ---
PATIENT TRANSPORTED VIA BED TO ULTRASOUND AND JUST RETURNED TO FLOOR. SPOUSE AT BEDSIDE. NO CONCERNS VOICED AT THIS TIME. SAFETY MEASURES IN PLACE. CALL LIGHT WITHIN REACH.
[2023-10-07] MEDS ORDERED: LEVOFLOXACIN750 MG PO (12:55)
[2023-10-07] MEDS ORDERED: ELIQUIS5 MG PO (12:56)
--- NOTE | 2023-10-07 14:21 | NUR ---
DISCHARGE INSTRUCTIONS GIVEN TO PATIENT WITH SPOUSE AT BEDSIDE. PATIENT ALERT AND ORIENTED AND ABLE TO VERBALIZE UNDERSTANDING OF INSTRUCTIONS. DENIES PAIN OR DISCOMFORT. NO CONCERNS VOICED. PATIENT TRANSPORTED VIA WHEELCHAIR WITH SPOUSE ACCOMPANYING. ALL BELONGING TAKEN WITH PATIENT.
== END 2023-10-07 14:21 | disposition home or self-care (01) | DRG 809 ==
LOC: ED 16:47 → ED-I 22:10 → ED 22:29 → MS2 22:30
PROVIDERS: Family Medicine; Nurse Practitioner Family; ADMIT Internal Medicine; ATTEND Internal Medicine
PROC: 0T2BX0Z Change Drainage Device in Bladder, External Approach (ICD-10-PCS; principal; 2023-10-06)
DX: D70.1 Agranulocytosis secondary to cancer chemotherapy (principal); I82.622 Acute embolism and thrombosis of deep veins of left upper extremity; T83.510A Infection and inflammatory reaction due to cystostomy catheter, initial encounter; T82.868A Thrombosis due to vascular prosthetic devices, implants and grafts, initial encounter; N13.30 Unspecified hydronephrosis; N39.0 Urinary tract infection, site not specified; T83.090A Other mechanical complication of cystostomy catheter, initial encounter; R50.81 Fever presenting with conditions classified elsewhere; T45.1X5A Adverse effect of antineoplastic and immunosuppressive drugs, initial encounter; B96.89 Other specified bacterial agents as the cause of diseases classified elsewhere; D50.9 Iron deficiency anemia, unspecified; K66.9 Disorder of peritoneum, unspecified; G80.9 Cerebral palsy, unspecified; C67.5 Malignant neoplasm of bladder neck; Y83.3 Surgical operation with formation of external stoma as the cause of abnormal reaction of the patient, or of later complication, without mention of misadventure at the time of the procedure; Z79.60 Long term (current) use of unspecified immunomodulators and immunosuppressants
CPT/HCPCS: J0692; J1447; J2060; J3475; Q9967

== ENCOUNTER 2023-11-18 13:29 | Emergency (ER) | payer OTHER ==
[~2023-11-18] VITALS: Ht 162.6 cm; Wt 65.7 kg
[~2023-11-18 13:29] MED LIST changes: +ALPRAZOLAM0.25 MG PO; +CEPHALEXIN500 MG PO; +COMPAZINE10 MG PO; +ELIQUIS5 MG PO; +FENTANYL25 MCG/HR TD; +GABAPENTIN300 M2; +GABAPENTIN300 M2 PO; +HYDROMORPHONE HC4 MG PO; +LEVOFLOXACIN750 MG PO; +LOPERAMIDE HCL2 M1 PO; +NARCAN4 MG/0.1 M; +OXYBUTYNIN CHLO15 MG PO
[2023-11-18 14:45] VITALS: BP 113/74
[2023-11-18 15:00] VITALS: BP 112/74
[2023-11-18 15:23] VITALS: BP 112/74
== END 2023-11-18 15:24 | disposition left against medical advice (07) ==
LOC: ED 13:29
DX: T83.090A Other mechanical complication of cystostomy catheter, initial encounter (principal); N99.511 Cystostomy infection; B36.9 Superficial mycosis, unspecified; G80.9 Cerebral palsy, unspecified; I25.10 Atherosclerotic heart disease of native coronary artery without angina pectoris; Y83.3 Surgical operation with formation of external stoma as the cause of abnormal reaction of the patient, or of later complication, without mention of misadventure at the time of the procedure; Z85.51 Personal history of malignant neoplasm of bladder; Z53.29 Procedure and treatment not carried out because of patient's decision for other reasons

== ENCOUNTER 2024-06-09 15:52 | Emergency (ER) | payer OTHER ==
[~2024-06-09] VITALS: Ht 162.6 cm; Wt 62.0 kg
[2024-06-09 16:21] VITALS: BP 128/89
[2024-06-09] MEDS ORDERED: METOPROLOL SUCCINATE 25 MG/TAB-TOPROL XL PO ONE (16:40)
[2024-06-09 17:13] VITALS: BP 128/89
== END 2024-06-09 17:23 | disposition home or self-care (01) ==
LOC: ED 15:52
DX: T83.038A Leakage of other urinary catheter, initial encounter (principal); G80.9 Cerebral palsy, unspecified; C68.0 Malignant neoplasm of urethra; C78.5 Secondary malignant neoplasm of large intestine and rectum; C79.82 Secondary malignant neoplasm of genital organs; I25.10 Atherosclerotic heart disease of native coronary artery without angina pectoris; Y83.3 Surgical operation with formation of external stoma as the cause of abnormal reaction of the patient, or of later complication, without mention of misadventure at the time of the procedure; Z90.49 Acquired absence of other specified parts of digestive tract; Z90.79 Acquired absence of other genital organ(s); Z90.6 Acquired absence of other parts of urinary tract; Z93.3 Colostomy status